=== PATIENT | female | born 1960 ===

== ENCOUNTER 2020-07-27 08:56 | Outpatient (REF) | payer SELFPAY ==
[2020-07-27 09:35] LABS: Cholesterol 153 mg/dL
== END 2020-07-27 08:57 | disposition home or self-care (01) ==
LOC: HO.LNC 08:56
PROVIDERS: Visit Provider Pathology Anatomic Pathology & Clinical Pathology
DX: Z76.89 Persons encountering health services in other specified circumstances (principal)
CPT/HCPCS: 82465